=== PATIENT | female | born 1955 | race Caucasian/White ===

== ENCOUNTER 2023-06-14 11:21 | Day surgery (SDC) | payer OTHER ==
[~2023-06-14] VITALS: Ht 162.6 cm; Wt 60.3 kg
[~2023-06-14 11:21] MED LIST: ASCO500T11 PO; B-COTAB59 OR; CALC-437 OR; EREN140I SC; GLUCTAB8 OR; THYR30TA PO; TURMPOW PO; VERA120T92 PO; [UNRECOGNIZED DRUG - CODE] OR
[2023-06-14] MEDS ORDERED: ceFAZolin 2 GM/D5W100ml 100 ML IV ONE (11:35)
[2023-06-14] MEDS ORDERED: BUPIVACAINE 0.25% INJ 50ML VIAL ONE (11:53)
[2023-06-14] MEDS ORDERED: MIDAZOLAM HCL 2MG/2ML 2ml VIAL (1mg/ml) ONE (12:44)
[2023-06-14] MEDS ORDERED: HYDROmorphone HCL 2 MG/ML VL/or syr ONE (12:44)
[2023-06-14] MEDS ORDERED: fentaNYL CITRATE 100 MCG/2 ML VL ONE (12:44)
[2023-06-14] MEDS ORDERED: PROPOFOL 10 MG/ML 20 ML IV ONE (12:45)
[2023-06-14] MEDS ORDERED: KETOROLAC TROMETH 30 MG/ML 1ML VIAL ONE (12:45)
[2023-06-14] MEDS ORDERED: GLYCOPYRROLATE 0.2 MG/ML 1ML VIAL ONE (12:45)
[2023-06-14] MEDS ORDERED: DexAMETHasone SOD PHOS 10MG/1ML VIAL INJ ONE (12:45)
[2023-06-14] MEDS ORDERED: ePHEDrine SULFATE 50 MG/ML AMP ONE (12:45)
[2023-06-14] MEDS ORDERED: LIDOCAINE 2% (LOCAL ANESTH.) PF 5ml SDV ONE (12:45)
[2023-06-14] MEDS ORDERED: ONDANSETRON HCL 4 MG/2 ML VIAL ONE (12:45)
[2023-06-14] MEDS ORDERED: KETAMINE 50mg/ML 1ml syringe ONE (12:59)
[2023-06-14 14:28] VITALS: O2SAT 99
[2023-06-14 14:33] VITALS: TEMP 96.9
[2023-06-14] MEDS ORDERED: ONDANSETRON HCL 4 MG/2 ML VIAL IV PRN (14:45)
[2023-06-14 15:05] VITALS: O2SAT 94
[2023-06-14] MEDS: HYDROmorphone HCL 2 MG/ML VL/or syr IV PRN ×2 (15:15→15:32)
[2023-06-14 16:00] VITALS: BP 138/75; PULSE 76; RESP 14; O2SAT 96
== END 2023-06-14 16:21 | disposition home or self-care (01) ==
LOC: SUR 11:21
PROVIDERS: ATTEND Orthopaedic Surgery
DX: S52.552A Other extraarticular fracture of lower end of left radius, initial encounter for closed fracture (principal); E03.9 Hypothyroidism, unspecified; G43.909 Migraine, unspecified, not intractable, without status migrainosus; X58.XXXA Exposure to other specified factors, initial encounter; Y93.89 Activity, other specified; Z88.1 Allergy status to other antibiotic agents; Z79.890 Hormone replacement therapy; Z87.891 Personal history of nicotine dependence; Z98.890 Other specified postprocedural states
CPT/HCPCS: 25607; 73100; 76000; C1713; J1100; J1170; J1885; J2001; J2250; J2405; J2704; J3010; J3490

== ENCOUNTER 2023-08-08 06:58 | Emergency (ER) | payer OTHER ==
[~2023-08-08] VITALS: Ht 162.6 cm; Wt 58.0 kg
[2023-08-08] MEDS: methylPREDNISolone SOD SUCC 125 MG/2 ML VL IM ONE (08:03)
[2023-08-08] MEDS: levoFLOXacin 500 MG TAB PO ONE (08:04)
[2023-08-08 08:12] LABS: Basophils # (auto) 0 10 ^3/uL (0-0.2); Hemoglobin 12.4 g/dL (12.2-16.2); Lymphocytes # (auto) 1.6 10 ^3/uL (0.4-5.4); Monocytes # (auto) 0.6 10 ^3/uL (0-1.3); White Blood Cell 3.8 10^3/uL (4.4-10.8)
[2023-08-08 08:14] LABS: Eosinophils # (auto) 0.1 10 ^3/uL (0-0.8); Eosinophils % (auto) 3.9 % (0.0-7.0); Hematocrit 37.8 % (36.0-46.0); Lymphocytes % (auto) 40.9 % (10.0-50.0); Mean Corpuscular Hemoglobin 27.5 pg (28.0-32.0); Mean Corpuscular Hgb Conc. 32.9 g/dL (32.0-36.0); Mean Corpuscular Volume 83.5 fL (80.0-100.0); Monocytes % (auto) 15.2 % (0.0-12.0); Neutrophils # (auto) 1.5 10 ^3/uL (1.6-8.6); Nucleated Red Blood Cells % 0.2 %; Red Blood Cells 4.53 10^6/uL (4.0-5.20); Red Cell Distribution Width 17.7 % (11.8-14.3)
[2023-08-08 08:27] LABS: Chloride 105 mmol/L (98-107); Potassium 4.6 mmol/L (3.5-5.1); Sodium 141 mmol/L (136-145)
[2023-08-08 08:28] LABS: Anion Gap 5 (5-15); Calcium 9.7 mg/dL (8.5-10.1); Carbon Dioxide 31 mmol/L (20-30)
[2023-08-08 08:33] LABS: Glucose 95 mg/dL (74-106)
[2023-08-08 09:29] VITALS: RESP 15; O2SAT 98
[2023-08-08 09:29] LABS: BUN/Creatinine Ratio 23.5 (10.0-20.0); Blood Urea Nitrogen 23 mg/dL (9-23)
[2023-08-08 10:41] VITALS: BP 169/77; PULSE 64; RESP 13; TEMP 97.7; O2SAT 99
[2023-08-08 10:50] LABS: Urine WBC None Seen /hpf (0 - 5)
[2023-08-08 11:13] LABS: Urine Bacteria NONE SEEN /hpf (None Seen); Urine Blood Negative /uL (Negative); Urine Clarity Clear (Clear); Urine Color Colorless (Yellow); Urine Protein, UAD Negative (Negative); Urine Specific Gravity 1.004 (1.001-1.035); Urine Urobilinogen Normal (Negative)
== END 2023-08-08 10:44 | disposition home or self-care (01) ==
LOC: ER 06:58
DX: J40 Bronchitis, not specified as acute or chronic (principal); Z88.1 Allergy status to other antibiotic agents
CPT/HCPCS: 36415; 71045; 80048; 81001; 84484; 85025; 93005; 96372; 99285; J2930

== ENCOUNTER 2024-01-17 12:13 | Emergency (ER) | payer OTHER ==
[~2024-01-17] VITALS: Ht 162.6 cm; Wt 55.0 kg
[2024-01-17] MEDS: IPRATROPIUM BROM 0.5 MG/2.5ML INH SOL HHN ONE (13:00)
[2024-01-17] MEDS: ALBUTEROL SULF 2.5 MG/0.5ML(0.5%) NEB SOLN HHN ONE (13:01)
[2024-01-17 13:08] LABS: Basophils # (auto) 0 10 ^3/uL (0-0.2); Basophils % (auto) 0.1 % (0.0-2.0); Eosinophils # (auto) 0 10 ^3/uL (0-0.8); Hematocrit 38.6 % (36.0-46.0); Hemoglobin 12.8 g/dL (12.2-16.2); Lymphocytes # (auto) 0.5 10 ^3/uL (0.4-5.4); Lymphocytes % (auto) 14.2 % (10.0-50.0); Mean Corpuscular Hemoglobin 29.3 pg (28.0-32.0); Mean Corpuscular Hgb Conc. 33.3 g/dL (32.0-36.0); Monocytes # (auto) 0.2 10 ^3/uL (0-1.3); Monocytes % (auto) 4.6 % (0.0-12.0); Neutrophils # (auto) 3.1 10 ^3/uL (1.6-8.6); Neutrophils % (auto) 81.1 % (37.0-80.0); Red Blood Cells 4.38 10^6/uL (4.0-5.20); Red Cell Distribution Width 14.6 % (11.8-14.3); White Blood Cell 3.9 10^3/uL (4.4-10.8)
[2024-01-17 13:16] LABS: COVID19 ANTIGEN SOFIA FIA NEGATIVE (NEGATIVE)
[2024-01-17 13:17] LABS: Rapid Influenza A Negative (Negative)
[2024-01-17 13:18] LABS: Rapid Influenza B Negative (Negative)
[2024-01-17 13:20] LABS: Chloride 106 mmol/L (98-107); Potassium 4.4 mmol/L (3.5-5.1); Sodium 142 mmol/L (136-145)
[2024-01-17 13:21] LABS: Anion Gap 9 (5-15); Calcium 9.9 mg/dL (8.7-10.4); Carbon Dioxide 27 mmol/L (20-30)
[2024-01-17 13:26] LABS: BUN/Creatinine Ratio 10.6 (10.0-20.0); Blood Urea Nitrogen 13 mg/dL (9-23); Glucose 204 mg/dL (74-106)
[2024-01-17 13:56] LABS: Urine Bacteria None Seen /hpf (None Seen)
[2024-01-17 14:15] LABS: Urine Blood Negative /uL (Negative); Urine Clarity Clear (Clear); Urine Color Yellow (Yellow); Urine Protein, UAD TRACE (Negative); Urine Specific Gravity 1.017 (1.001-1.035); Urine Urobilinogen Normal (Negative); Urine WBC 1 /hpf (0 - 5)
[2024-01-17 14:25] VITALS: BP 125/57; PULSE 107; RESP 20; TEMP 98.2; O2SAT 98
[2024-01-17] MEDS ORDERED: AZIT1POW PO (14:52)
[2024-01-17] MEDS ORDERED: METH4PAK PO (14:52)
[2024-01-17] MEDS: methylPREDNISolone SOD SUCC 125 MG/2 ML VL IV ONE (15:11)
[2024-01-17] MEDS ORDERED: methylPREDNISolone SOD SUCC 125 MG/2 ML VL IM ONE (15:15)
== END 2024-01-17 15:13 | disposition left against medical advice (07) ==
LOC: ER 12:13
DX: J20.9 Acute bronchitis, unspecified (principal); M54.9 Dorsalgia, unspecified; Z98.890 Other specified postprocedural states; Z88.1 Allergy status to other antibiotic agents; Z79.899 Other long term (current) drug therapy; Z20.822 Contact with and (suspected) exposure to COVID-19
CPT/HCPCS: 36415; 71046; 80048; 81001; 85025; 87426; 87804; 93005; 94644

== ENCOUNTER 2024-03-15 11:00 | Emergency (ER) | payer OTHER ==
[~2024-03-15] VITALS: Ht 165.1 cm; Wt 61.3 kg
[~2024-03-15 11:00] MED LIST changes: +AZIT1POW PO; +METH4PAK PO
[2024-03-15] MEDS: SODIUM CHLORIDE 0.9% 1,000 ML IV ONE (11:56)
[2024-03-15 11:58] VITALS: PULSE 71; RESP 17; O2SAT 100
[2024-03-15 11:58] LABS: Basophils # (auto) 0 10 ^3/uL (0-0.2); Basophils % (auto) 0.8 % (0.0-2.0); Eosinophils # (auto) 0.1 10 ^3/uL (0-0.8); Eosinophils % (auto) 1.5 % (0.0-7.0); Hematocrit 35.1 % (36.0-46.0); Hemoglobin 11.9 g/dL (12.2-16.2); Lymphocytes # (auto) 1.4 10 ^3/uL (0.4-5.4); Lymphocytes % (auto) 36.9 % (10.0-50.0); Mean Corpuscular Volume 88.3 fL (80.0-100.0); Monocytes # (auto) 0.4 10 ^3/uL (0-1.3); Monocytes % (auto) 11.1 % (0.0-12.0); Neutrophils # (auto) 1.9 10 ^3/uL (1.6-8.6); Neutrophils % (auto) 49.7 % (37.0-80.0); Nucleated Red Blood Cells % 0.1 %; Platelet Count (auto) 255 10^3/uL (140-450); Red Blood Cells 3.97 10^6/uL (4.0-5.20); Red Cell Distribution Width 15.3 % (11.8-14.3); White Blood Cell 3.8 10^3/uL (4.4-10.8)
[2024-03-15 12:21] LABS: Alanine Aminotransferase 21 U/L (7-40); Albumin 4.4 g/dL (3.2-4.8); Alkaline Phosphatase 65 U/L (46-116); Anion Gap 6 (5-15); Aspartate Aminotransferase 17 U/L (13-40); Bilirubin, Total 0.5 mg/dL (0.2-1.0); Blood Urea Nitrogen 21 mg/dL (9-23); Calcium 10.1 mg/dL (8.7-10.4); Carbon Dioxide 27 mmol/L (20-31); Chloride 108 mmol/L (98-107); Glucose 128 mg/dL (74-106); Sodium 141 mmol/L (136-145); Total Protein 6.3 g/dL (5.7-8.2)
[2024-03-15 13:02] LABS: Urine Bacteria None Seen /hpf (None Seen)
[2024-03-15 13:20] LABS: Urine Blood Negative /uL (Negative); Urine Clarity Clear (Clear); Urine Color Light-Yellow (Yellow); Urine Hyaline Cast FEW /lpf (0 - 2); Urine Protein, UAD Negative (Negative); Urine Specific Gravity 1.018 (1.001-1.035); Urine Urobilinogen Normal (Negative); Urine WBC 1 /hpf (0 - 5); Urine pH 5.5 (5.0-9.0)
[2024-03-15 18:00] VITALS: BP 115/54; PULSE 81; RESP 17; TEMP 98.4; O2SAT 100
== END 2024-03-15 18:06 | disposition home or self-care (01) ==
LOC: EDBD 11:00 → ER 11:00
DX: R55 Syncope and collapse (principal); Z88.1 Allergy status to other antibiotic agents; Z79.899 Other long term (current) drug therapy; Z90.49 Acquired absence of other specified parts of digestive tract
CPT/HCPCS: 36415; 70450; 71045; 80053; 81001; 83880; 84484; 85025; 93005; 96360; 99285; J7030

== ENCOUNTER 2024-10-19 11:02 | Emergency (ER) | payer OTHER ==
[~2024-10-19] VITALS: Ht 162.6 cm; Wt 60.2 kg
[~2024-10-19 11:02] MED LIST changes: +ALBUAER3 IN; +ALPR0.25 PO; +LEVO500T91 PO; +METR-344 PO; +PHEN1LIQ50 PO; +PROP60CA34 PO
--- NOTE | 2024-10-19 12:01 | ED.PDOC ---
SOB-HPI HPI Comments A 69 YEAR OLD FEMALE PRESENTS TO THE ED WITH COMPLAINT OF COUGH. PATIENT STATES SHE HAS BEEN EXPERIENCING A COUGH AND CONGESTION FOR THE PAST 5 DAYS. PATIENT DENIES FEVER, CHILLS, SHORTNESS OF BREATH, CHEST PAIN, ABDOMINAL PAIN, NAUSEA, VOMITING, HEADACHE, OR OTHER COMPLAINTS. NO OTHER SYMPTOMS OR MODIFYING FACTORS AT THIS TIME. PATIENT IS ALERT, ORIENTED X 4, AND HAS STEADY GAIT. Chief Complaint: Cough Time Seen by MD: 11:14 Primary Care Provider: AIDE Hirsch notes: Nurses Notes, Medications, Allergies Information Source: Patient Mode of Arrival: Ambulatory Severity: Moderate Timing: Days Duration: Since onset, Days Context: Spontaneous Onset PE Risk Factors: None History of: None Prehospital treatment: None Modifying Factors: Nothing Associated Signs and Symptoms: Cough, Nasal Congestion If cough with SOB: Productive Past Medical History PAST MEDICAL HISTORY: Seizures Surgical History: Appendectomy, Denies all surgeries BROOMMAKER History: Denies all BROOMMAKER Hx Family History Family History: Reviewed,noncontributory to illness Social History Smoker: Non-Smoker Alcohol: Denies ETOH Use Drugs: Denies Drug Use Lives In: Home Constitutional: denies: chills, diaphoresis, fatigue, fever, malaise, sweats, weakness, others EENTM: reports: nose congestion; denies: blurred vision, double vision, ear bleeding, ear discharge, ear drainage, ear pain, ear ringing, eye pain, eye re dness, hearing loss, mouth pain, mouth swelling, nasal discharge, nose bleeding, nose pain, photophobia, tearing, throat pain, throat swelling, voice changes, others Respiratory: reports: cough; denies: hemoptysis, orthopnea, SOB at rest, shortness of breath, SOB with excertion, stridor, wheezing, others Cardiovascular: denies: chest pain, dizzy spells, diaphoresis, Dyspnea on exertion, edema, irregular heart beat, left arm pain, lightheadedness, palpitations, PND, syncope, others Gastrointestinal: denies: abdomen distended, abdominal pain, blood streaked bowels, constipated, diarrhea, dysphagia, difficulty swallowing, hematemesis, melena, nausea, poor appetite, poor fluid intake, rectal bleeding, rectal pain, vomiting, others Genitourinary: denies: abnormal vagina bleeding, burning, dyspareunia, dysuria, flank pain, frequency, hematuria, incontinence, pain, , vagina discharge, urgency, others Neurological: denies: dizziness, fainting, headache, left sided numbness, left sided weakness, numbness, paresthesia, pre-existing deficit, right sided numbness, right sided weakness, seizure, speech problems, tingling, tremors, weakness, others Musculoskeletal: denies: back pain, gout, joint pain, joint swelling, muscle pain, muscle stiffness, neck pain, others Integumetry: denies: bruises, change in color, change in hair/nails, dryness, laceration, lesions, lumps, rash, wounds, others Allergic/Immunocompromised: denies: Difficulty Healing, Frequent Infections, Hives, Itching, others Hematologic/Lymphatic: denies: anemia, blood clots, easy bleeding, easy bruising, swollen glands, others Endocrine: denies: excessive hunger, excessive sweating, excessive thirst, excessive urination, flushing, intolerance to cold, intolerance to heat, unexplained weight gain, unexplained weight loss, others Psychiatric: denies: anxiety, bipolar disorder, depression, hopeless, panic disorder, schizophrenia, sleepless, suicidal, others All Other Systems: Reviewed and Negative Physical Exam General Appearance: No Apparent Distress, Normal HEENT: Normal ENT Inspection, PERRL/EOMI, Pharynx Normal, TMs Normal Neck: Full Range of Motion, Non-Tender, Normal, Normal Inspection Respiratory: Chest Non-Tender, Expiration, No Accessory Muscle Use, No Respiratory Distress, Rhonchi Cardiovascular: No Edema, No JVD, No Murmur, No Gallop, Normal Peripheral Pulses, Regular Rate/Rhythm Breast Exam: Deferred Gastrointestinal: No Organomegaly, Non Tender, No Pulsatile Mass, Normal Bowel Sounds, Soft Genitalia: Deferred Pelvic: Deferred Rectal: Deferred Extremities: No calf tenderness, Normal capillary refill, Normal inspection, Normal range of motion, Non-tender, No pedal edema Musculoskeletal : Apperance: Normal Neurologic: Alert, multiple pressure riveter operator II-XII nml as Tested, No Motor Deficits, Normal Affect, Normal Mood, No Sensory Deficits Cerebellar Function: Normal Reflexes: Normal Skin: Dry, Normal Color, Warm Peripheral Pulses: 2+ carotid (R), 2+ carotid (L) Lymphatic: No Adenopathy Was a procedure done? Was a procedure done?: No Differential Dx Differential Diagnosis: Bronchitis, Pneumonia, Sinusitis, Allergic Rhinitis, Otitis Media, Pharyngitis, URI X-Ray, Labs, Meds, VS Vital Signs Date Time Temp Pulse Resp B/P (MAP) Pulse Ox O2 Delivery O2 Flow Rate FiO2 10/19/24 12:14 97.3 84 18 115/62 (79) 97 97.3 10/19/24 12:14 84 18 97 Room Air 10/19/24 11:16 18 97 Room Air* 0 21 10/19/24 11:16 97.3 84 18 115/62 (79) 97 97.3 CLINICAL INFORMATION: Cough. TECHNIQUE: Frontal and lateral chest radiographs were obtained. COMPARISON: XY CHEST TWO VIEWS ROUTINE on DOS: 01/17/24 FINDINGS: Lungs: Clear. Cardiac: Heart size is within normal limits. Pulmonary vasculature: Unremarkable Mediastinum/dat: Within normal limits. Bones: No evidence of acute osseous abnormality. Other: No other significant finding. IMPRESSION: No evidence of acute disease in the chest. ATED BY: BAKARI GODDARD DO DICTATED DATE/TIME: 10/19/241157 SIGNED BY: BAKARI GODDARD DO SIGNED DATE/TIME: 10/19/241157 CC: X-Ray, Labs, Meds, VS Comment EXTERNAL MEDICAL RECORDS REVIEWED: [NONE] INDEPENDENT HISTORIANS: [NONE] SOCIAL DETERMINANTS OF HEALTH: [NONE] LABS ORDERED: NONE REVIEWED AND INTERPRETED RESULTS: NONE IMAGING ORDERED: XR CHEST TREATMENTS ORDERED: PROCEDURES PERFORMED: NONE CRITICAL CARE TIME: NONE I HAVE DISCUSSED THE PATIENT WITH THE ATTENDING PHYSICIAN DR. RODRIGEZ AND HE AGREES WITH THE PATIENT'S PLAN OF CARE AND DISPOSITION. BASED ON HISTORY OF PRESENT ILLNESS, AND PHYSICAL EXAM, PATIENT WILL BE DISCHARGED HOME. DISCUSSED PLAN FOR DISCHARGE HOME WITH RX [LEVAQUIN 500MG]. MEDICATION WARNINGS GIVEN. SHARED DECISION MAKING: PATIENT INSTRUCTED TO FOLLOW UP WITH PRIMARY CARE PROVIDER IN 1-2 DAYS FOR RE-EVALUATION OF SYMPTOMS. PATIENT VERBALIZES UNDERSTANDING TO RETURN TO ED FOR NEW OR WORSENING SYMPTOMS OR IF FOLLOW UP WITH PCP CANNOT BE OBTAINED. PATIENT FEELS COMFORTABLE GOING HOME AT THIS TIME. ALL QUESTIONS ADDRESSED AT TIME OF DISCHARGE. Images Reviewed?: Images reviewed and evaluated by me Time of 1ST Reevaluation: 12:20 Reevaluation 1ST: Improved Patient Education/Counseling: Diagnosis, Treatment, Need For Follow Up Family Education/Counseling: Diagnosis, Treatment, Need For Follow Up Medical Screening: No EMC Exist At This Time Departure 1 Departure Time of Disposition: 12:30 Impression: Primary Impression: Acute bronchitis Qualified Codes: J20.9 - Acute bronchitis, unspecified Disposition: HOME / SELF CARE / HOMELESS Condition: Stable Additional Instructions: FOLLOW-UP WITH PCP IN 1 TO 2 DAYS. TAKE MEDICATIONS PRESCRIBED. RETURN TO ED FOR ANY NEW OR WORSENING SYMPTOMS. e-Prescriptions Levofloxacin Hemihydrate (LEVAQUIN 500 MG) 500 Mg Tab 1 TAB PO DAILY, #10 TAB Prov: CIPRIANO ZURITA 10/19/24 Discharged With: Self Critical Care Note Critical Care Time?: No Stability Stability form required: No Heart Score Heart Score: Heart Score Response (Comments) Value History N/A 0 EKG N/A 0 Age N/A 0 Risk Factors N/A 0 Troponin N/A 0 Total 0 I personally scribed for CIPRIANO ZURITA ([email or web address]) on 10/19/24 at 12:01. Electronically submitted by Garry Mejía (LUIS ENRIQUE). I personally scribed for CIPRIANO ZURITA ([email or web address]) on 10/19/24 at 12:12. Electronically submitted by Garry Mejía (LUIS ENRIQUE). CIPRIANO ZURITA October 19, 2024 12:01
[2024-10-19 12:14] VITALS: BP 115/62; PULSE 84; RESP 18; TEMP 97.3; O2SAT 97
[2024-10-19] MEDS ORDERED: LEVO500T91 PO (12:20)
== END 2024-10-19 12:26 | disposition home or self-care (01) ==
LOC: ER 11:02
DX: J20.9 Acute bronchitis, unspecified (principal); Z90.49 Acquired absence of other specified parts of digestive tract
CPT/HCPCS: 71046